=== PATIENT | female | born 1995 | race Caucasian/White ===

== ENCOUNTER 2017-07-05 17:21 | Emergency (ER) | payer SELFPAY ==
[~2017-07-05] VITALS: Ht 177.8 cm; Wt 80.0 kg
[2017-07-05 17:28] VITALS: BP 136/86; PULSE 63; RESP 17; TEMP 97.2; O2SAT 100
[2017-07-05 17:48] VITALS: BP 128/62; PULSE 61; RESP 20; O2SAT 100
--- NOTE | 2017-07-05 17:59 | PD ---
HPI Chief Complaint: Fall Time Seen by Provider: 17:40 Travel History International Travel<30 days: No Contact w/Intl Traveler<30days: No Traveled to known affect area: No History of Present Illness HPI Patient is a 22-year-old female presenting to the emergency room for evaluation of mid back pain after she sustained a mechanical fall this morning at 11:30 AM. Patient states she slipped down 2 steps at her hotel landing on her back. She denies any head injury or loss of consciousness. She reports her pain is an 8 out of 10, she reports numbness in her arms. Patient states that she felt nauseated and vomited prior to arrival. She also stated that she had an episode of bladder and bowel incontinence. She reports that she had the episode of incontinence when she was vomiting, because she did not know she had to go. Patient denies any significant past medical history. She denies any headache, abdominal pain, leg pain, dizziness. Symptom onset was sudden, symptoms are moderate in nature. There are no alleviating factors. [facility] Past Medical History Medical History: Denies Significant Hx ?: Unknown Social History Alcohol Use: No Tobacco Use: Yes (pack a day ) Substance Use: No Allergies-Medications (Allergen,Severity, Reaction): Coded Allergies: azithromycin (Verified Allergy, Severe, Hives, 07/05/17) Reported Meds & Prescriptions Reported Meds & Active Scripts Active No Active Prescriptions or Reported Medications Review of Systems Except as stated in HPI: all other systems reviewed are Neg Musculoskeletal: Positive: Myalgias, Arthralgias, Pain Physical Exam Narrative GENERAL: Well-developed, well-nourished, alert female. Presenting in no acute distress. SKIN: Warm and dry. HEAD: Atraumatic. Normocephalic. EYES: Pupils equal and round. No scleral icterus. No injection or drainage. ENT: No nasal bleeding or discharge. Mucous membranes pink and moist. NECK: Trachea midline. No JVD. CARDIOVASCULAR: Regular rate and rhythm. RESPIRATORY: No accessory muscle use. Clear to auscultation. Breath sounds equal bilaterally. GASTROINTESTINAL: Abdomen soft, non-tender, nondistended. Hepatic and splenic margins not palpable. MUSCULOSKELETAL: Extremities without clubbing, cyanosis, or edema. No obvious deformities. Tenderness to palpation over mid thoracic and upper lumbar spine. No step-off noted. RECTAL EXAM: No masses or tenderness, stool is brown. Normal rectal tone. NEUROLOGICAL: Awake and alert. No obvious cranial nerve deficits. Motor grossly within normal limits. Five out of 5 muscle strength in the arms and legs. Normal speech. PSYCHIATRIC: Appropriate mood and affect; insight and judgment normal. Data Data Last Documented VS Vital Signs Date Time Temp Pulse Resp B/P (MAP) Pulse Ox O2 Delivery O2 Flow Rate FiO2 07/05/17 17:48 61 20 128/62 (84) 100 Room Air 07/05/17 17:28 97.2 Orders Orders Ed Urine Pregnancytest Poc (07/05/17 17:49) Ct Thor Spine W/O Contrast (07/05/17 ) Ct Cerv Spine W/O Contrast (07/05/17 ) Ct Lumb Spine W/O Contrast (07/05/17 ) Iv Access Insert/Monitor (07/05/17 17:59) Ketorolac Inj (Toradol Inj) (07/05/17 18:00) Orphenadrine Inj (Norflex Inj) (07/05/17 18:00) Ondansetron Inj (Zofran Inj) (07/05/17 19:15) MDM Medical Decision Making Medical Screen Exam Complete: Yes Emergency Medical Condition: Yes Interpretation(s) Last Impressions Thoracic Spine CT 07/05/17 0000 Signed Impressions: Service Date/Time: Wednesday, July 05, 2017 18:42 - CONCLUSION: No acute bony in the thoracic spine. Ingested radiodensity of some type overlying the stomach. This might be better evaluated with plain radiographs. Errol Rashid MD Lumbar Spine CT 07/05/17 0000 Signed Impressions: Service Date/Time: Wednesday, July 05, 2017 18:32 - CONCLUSION: No evidence of acute bony injury in the lumbosacral spine Errol Rashid MD Cervical Spine CT 07/05/17 0000 Signed Impressions: Service Date/Time: Wednesday, July 05, 2017 18:21 - CONCLUSION: No acute bony injury in the cervical spine. Errol Rashid MD Vital Signs Date Time Temp Pulse Resp B/P (MAP) Pulse Ox O2 Delivery O2 Flow Rate FiO2 07/05/17 17:48 61 20 128/62 (84) 100 Room Air 07/05/17 17:28 97.2 63 17 136/86 (103) 100 Differential Diagnosis Sprain versus strain versus fracture versus discogenic pain versus other Narrative Course Patient is a 22-year-old female presenting to the emergency department for evaluation of mid back pain after sustaining a mechanical fall earlier today. Patient has no focal deficits on exam. She reported feeling nauseated due to the pain. CT is ordered and pending. Medications ordered for pain. Patient's vital signs are stable. CT scan of the lumbar, thoracic and cervical spines show no acute abnormalities. Patient reports feeling better after medication administration. Patient was reassured off exam findings. She was encouraged to apply warm heat to affected area, take medications as directed, avoid bed rest. She is encouraged to return to emergency department any new worsening symptoms. Patient was advised to follow-up with her primary doctor. Patient verbalized understanding of instructions. Patient stable for discharge. Diagnosis Primary Impression: Fall Qualified Codes: W19.XXXA - Unspecified fall, initial encounter Additional Impression: Back pain Qualified Codes: M54.6 - Pain in thoracic spine Referrals: Primary Care Physician 2 days Patient Instructions: Back Pain (ED), General Instructions Additional Instructions: Follow-up with your primary doctor Apply warm heat to the affected area Take medications as directed Avoid exacerbating activities Avoid bed rest Return to emergency department for any new worsening symptoms Med/Other Pt SpecificInfo: Prescription(s) given Scripts Cyclobenzaprine (Flexeril) 10 Mg Tab 10 MG PO TID Y for MUSCLE SPASM, #30 TAB 0 Refills Prov: Joycelyn Arteaga 07/05/17 Ketorolac (Ketorolac) 10 Mg Tab 10 MG PO TID Y for Pain Management, #30 TAB 0 Refills Prov: Joycelyn Arteaga 07/05/17 Disposition: 01 DISCHARGE HOME Condition: Stable Joycelyn Arteaga Jul 05, 2017 17:59
[2017-07-05] MEDS ORDERED: KETOROLAC TROMETHAMINE 30 MG/ML (IVP) VIAL IV PUSH ONE (18:00)
[2017-07-05] MEDS ORDERED: ORPHENADRINE INJ 60 MG/2 ML AMP IV ONE (18:00)
--- NOTE | 2017-07-05 19:14 | RADRPT ---
EXAM DATE/TIME: 07/05/2017 18:21 [facility] COMPARISON: No previous studies available for comparison. INDICATIONS : Fell down stairs, numbness in hands, upper back pain. RADIATION DOSE: 13.49 CTDIvol (mGy) MEDICAL HISTORY : None SURGICAL HISTORY : None. ENCOUNTER: Initial ACUITY: 1 day PAIN SCALE: 10/10 LOCATION: neck TECHNIQUE: Volumetric scanning of the cervical spine was performed. Multiplanar reconstructions in the sagittal, coronal and oblique axial planes were performed. Using automated exposure control and adjustment o f the mA and/or kV according to patient size, radiation dose was kept as low as reasonably achievable to obtain optimal diagnostic quality images. DICOM format image data is available electronically f or review and comparison. FINDINGS: The alignment is normal. There is no evidence of cervical spine fracture. No bony canal or foraminal stenosis is identified. There is no evidence of paraspinal hematoma. CONCLUSION: No acute bony injury in the cervical spine. Errol Rashid MD on July 05, 2017 at 19:08 Board Certified Radiologist. This report was verified electronically.
[2017-07-05] MEDS ORDERED: ONDANSETRON HCL 4 MG/2 ML VIAL IV PUSH ONE (19:15)
--- NOTE | 2017-07-05 19:18 | RADRPT ---
EXAM DATE/TIME: 07/05/2017 18:42 [facility] COMPARISON: No previous studies available for comparison. INDICATIONS : Fell down stairs, numbness in hands, upper back pain. RADIATION DOSE: 27.34 CTDIvol (mGy) ; Combined studies - Thoracic Spine/Lumbar Spine MEDICAL HISTORY : None SURGICAL HISTORY : None. ENCOUNTER: Initial ACUITY: 1 day PAIN SCALE: 10/10 LOCATION: Paraspinal TECHNIQUE: Volumetric scanning of the thoracic spine was performed. Multiplanar reconstructions in the sagittal , coronal and oblique axial planes were performed. Using automated exposure control and adjustment o f the mA and/or kV according to patient size, radiation dose was kept as low as reasonably achievable to obtain optimal diagnostic quality images. DICOM format image data is available electronically f or review and comparison. FINDINGS: There is minimal right convex thoracic scoliosis. There is no evidence of spondylolisthesis. No fract ure is identified. There is no evidence of bony canal or foraminal stenosis. There is no evidence of paraspinal hematoma. There is a discoid radiodensity in the dependent gastric fundus which looks like an ingested object o f some type, metallic density. CONCLUSION: No acute bony in the thoracic spine. Ingested radiodensity of some type overlying the stomach. This might be better evaluated with plain r adiographs. Errol Rashid MD on July 05, 2017 at 19:12 Board Certified Radiologist. This report was verified electronically.
--- NOTE | 2017-07-05 19:25 | RADRPT ---
EXAM DATE/TIME: 07/05/2017 18:32 [facility] COMPARISON: No previous studies available for comparison. INDICATIONS : Fell down stairs, numbness in hands, upper back pain. RADIATION DOSE: 27.34 CTDIvol (mGy) ; Combined studies - Thoracic Spine/Lumbar Spine MEDICAL HISTORY : None SURGICAL HISTORY : None. ENCOUNTER: Initial ACUITY: 1 day PAIN SCALE: 10/10 LOCATION: Paraspinal TECHNIQUE: Volumetric scanning of the lumbar spine was performed. Multiplanar reconstructions in the sagittal, coronal and oblique axial planes were performed. Using automated exposure control and adjustment of the mA and/or kV according to patient size, radiation dose was kept as low as reasonably achievable t o obtain optimal diagnostic quality images. DICOM format image data is available electronically for review and comparison. FINDINGS: Lumbar spine alignment is satisfactory. There is no evidence of fracture. No bony canal or foraminal stenosis is identified. There is no evidence of paraspinal hematoma. CONCLUSION: No evidence of acute bony injury in the lumbosacral spine Errol Rashid MD on July 05, 2017 at 19:21 Board Certified Radiologist. This report was verified electronically.
[2017-07-05] MEDS ORDERED: KETO10 PO (20:04)
[2017-07-05] MEDS ORDERED: CYCL10TA PO (20:04)
== END 2017-07-05 20:20 | disposition home or self-care (01) ==
LOC: NEPE 17:21
DX: M54.6 Pain in thoracic spine (principal); R20.0 Anesthesia of skin
CPT/HCPCS: 72125; 72128; 72131; 84703; 96374; 96375; 99284; J1885; J2360; J2405